=== PATIENT | female | born 1930 | race Asian ===

== ENCOUNTER 2017-12-26 08:16 | Emergency (ER) | payer OTHER, MEDICAID ==
[~2017-12-26] VITALS: Ht 149.9 cm; Wt 49.9 kg
[~2017-12-26 08:16] MED LIST: AMLO10TA2 PO; ATOR20TA PO; GLIP-115 PO; LOSA25TA9 PO; MULT-574 PO; OMEP20CA74 PO
[2017-12-26 08:51] VITALS: BP 198/72
[2017-12-26] MEDS ORDERED: traMADol HCL 50 MG TAB PO ONE (09:00)
== END 2017-12-26 10:27 | disposition home or self-care (01) ==
LOC: ER 08:16
DX: B02.9 Zoster without complications (principal); E11.9 Type 2 diabetes mellitus without complications; E78.5 Hyperlipidemia, unspecified; I10 Essential (primary) hypertension; Z79.84 Long term (current) use of oral hypoglycemic drugs; Z79.899 Other long term (current) drug therapy

== ENCOUNTER → 2019-02-14 | Outpatient (CLI) | payer OTHER, MEDICAID ==
[~2019-02-14] MED LIST changes: +AMLO10TA12 PO; -AMLO10TA2 PO; +LOSA25TA40 PO; -LOSA25TA9 PO
== END | disposition home or self-care (01) ==
LOC: Rad HDHVI 15:45
PROVIDERS: ATTEND Internal Medicine Cardiovascular Disease
DX: I08.3 Combined rheumatic disorders of mitral, aortic and tricuspid valves (principal)
CPT/HCPCS: 93306